=== PATIENT | male | born 1975 | race Caucasian/White ===

== ENCOUNTER 2021-11-12 21:25 | Emergency (ER) | payer MEDICARE, MEDICAID ==
[~2021-11-12] VITALS: Ht 157.5 cm; Wt 88.6 kg
[2021-11-12 21:35] VITALS: BP 120/82
[2021-11-12] MEDS ORDERED: acetaminophen 325mg tablet PO ONE (23:05)
== END 2021-11-12 23:32 | disposition home or self-care (01) ==
LOC: ER 21:26
DX: M25.561 Pain in right knee (principal); Z98.890 Other specified postprocedural states; Z91.040 Latex allergy status
CPT/HCPCS: 29505; 73564; 99284